=== PATIENT | female | born 1985 | race Caucasian/White ===

== ENCOUNTER 2019-04-09 17:10 | Inpatient (IN) | payer MEDICAID ==
[~2019-04-09] VITALS: Ht 160 cm; Wt 78.1 kg
[~2019-04-09 17:10] MED LIST: PNV11TAB PO
[2019-04-09 17:45] VITALS: BP 124/60; PULSE 109; RESP 19; Ht 160 cm; Wt 78.1 kg
[2019-04-09] MEDS ORDERED: LACTATED RINGER'S 1,000 ML IV SCH ×2 (18:00→18:57)
[2019-04-09] MEDS ORDERED: LACTATED RINGER'S 1,000 ML IV ONE (18:00)
[2019-04-09] MEDS ORDERED: CARBOPROST 250 MCG INJ IM PRN ×2 (19:00→23:30)
[2019-04-09] MEDS ORDERED: OXYTOCIN 30 UNITS/LR 500 ML IV SCH ×2 (19:00→23:30)
[2019-04-09] MEDS ORDERED: METHYLERGONOVINE 0.2 MG INJ IM PRN ×2 (19:00→23:30)
[2019-04-09] MEDS ORDERED: GENTAMICIN 120 MG/NS (PMX) 100 ML IVPB ONE ×2 (19:00→19:18)
[2019-04-09] MEDS ORDERED: CLINDAMYCIN 900 MG (PMX) 50 ML IVPB SCH (19:00)
[2019-04-09] MEDS ORDERED: MISOPROSTOL 200 MCG TAB PR PRN ×2 (19:00→23:30)
[2019-04-09] MEDS ORDERED: AMPICILLIN 2 GM/NS (PMX) 100 ML IV SCH (19:00)
[2019-04-09] MEDS ORDERED: OXYTOCIN 30 UNITS/LR 500 ML IV PRN ×2 (19:00→23:30)
[2019-04-09] MEDS ORDERED: morphine SULFATE/PF (10 MG/10 ML) INJ ONE (19:06)
[2019-04-09] MEDS ORDERED: PHENYLephrine (100 MCG/ML) 10ML SYG ONE (19:06)
--- NOTE | 2019-04-09 19:08 | PREAC ---
Date/Time of Note Date/Time of Note DATE: 04/09/19 TIME: 19:07 Anesthesia Eval and Record Evaluation Time Pre-Procedure Interview DATE: 04/09/19 TIME: 19:07 Age 33 Sex female NPO: 8 hrs Preoperative diagnosis 25 weeks with heart rate >210 Planned procedure emergency c/s Past Medical History Past Medical History: Includes GI: Obesity Surgery & Anesthesia Issues No known issue Meds Anticoagulation: No Beta Shelbie within 24 hr: No Reason Beta Shelbie not given: Pt. not on B-Shelbie Reported Medications [id number] ( 19) 1 Each Tablet, 1 TAB PO DAILY, TAB 04/09/19 Current Medications Lactated Ringer's 1,000 ml @ 125 mls/hr Q8H IV Last administered on 04/09/19at 19:05; Admin Dose 125 MLS/HR; Start 04/09/19 at 18:00 Lactated Ringer's 1,000 ml @ 125 mls/hr Q8H IV ; Start 04/09/19 at 18:57; Status UNV Ampicillin 100 ml @ 100 mls/hr ONCE IV ; Start 04/09/19 at 19:00; Status UNV Clindamycin HCl/ Dextrose 50 ml @ 50 mls/hr ONCE IVPB ; Start 04/09/19 at 19:00; Status UNV Oxytocin/Lactated Ringer's 500 ml @ 125 mls/hr POST IV ; Start 04/09/19 at 19:00; Status UNV Oxytocin/Lactated Ringer's 500 ml @ 0 mls/hr ONCE PRN IV .VAGINAL BLEEDING; Start 04/09/19 at 19:00; Status UNV Methylergonovine Maleate (Methergine) 0.2 mg ONCE PRN IM .VAGINAL BLEEDING; Start 04/09/19 at 19:00; Status UNV Carboprost Tromethamine (Hemabate) 250 mcg ONCE PRN IM .VAGINAL BLEEDING; Start 04/09/19 at 19:00; Status UNV Misoprostol (Cytotec) 1,000 mcg ONCE PRN CA .VAGINAL BLEEDING; Start 04/09/19 at 19:00; Status UNV Gentamicin Sulfate 100 ml @ 200 mls/hr Q24H IVPB ; Start 04/09/19 at 19:00; Status UNV Meds reviewed: Yes Allergies Coded Allergies: No Known Allergy (Unverified , 04/09/19) Allergies Reviewed: Yes Labs/Studies Labs Reviewed: Reviewed by anesthesiologist Result Diagram: 04/09/19 1805 Laboratory Tests 04/09/19 18:05 test: Positive Pre-procedure Exam Last vitals Vital Signs Date Temp Pulse Resp B/P (MAP) Pulse Ox O2 O2 Flow FiO2 Time Delivery Rate 04/09/19 99.9 109 19 124/60 Room Air 17:45 (81) Airway: Adequate mouth opening, Adequate thyromental dist Mallampati: Mallampati II Teeth: Normal Lung: Normal Heart: Normal ASA Physical Status ASA physical status: 2 Emergency: E Planned Anesthetic General/MAC: ETT Neuraxial: Spinal, Epidural Pre-operative Attestations Prior to commencing anesthesia and surgery, the patient was re-evaluated, there was verification of: *The patient's identity *The results of appropriate recent lab work and preoperative vital signs *The above evaluation not changing prior to induction *Anesthetic plan, risk benefits, alternative and complications discussed with patient/family; questions answered; patient/family understands, accepts and wishes to proceed. SUELLEN MASSEY Apr 09, 2019 19:08
[2019-04-09] MEDS ORDERED: CITRIC ACID/NA CITRATE 30 ML CUP ONE (19:16)
[2019-04-09] MEDS ORDERED: CLINDAMYCIN 900 MG (PMX) 50 ML IVPB ONE (19:18)
[2019-04-09] MEDS ORDERED: AMPICILLIN 2 GM/NS (PMX) 100 ML ONE (19:18)
--- NOTE | 2019-04-09 19:20 | HP ---
Date/Time of Note Date/Time of Note DATE: 04/09/19 TIME: 19:06 OB - History Hx of Present Free Text/Dictation 33 years old with single intrauterine at 25 weeks with a DEBO of 07/23/2019 complaining of uterine contractions and leakage of fluid since last night. She denies nausea, vomiting, shortness of breath, chest pain, headache, visual changes, vaginal bleeding. Chief Complaint: Uterine contractions and leakage of fluid Estimated Due Date: Jul 23, 2019 : 3 Para: 2 Spontaneous : 0 Therapeutic : 0 Care: Good Care Ultrasounds: Normal mid trimester US Obstetrical Complications: None Medical Complications: None Past Family/Social History * Past Medical history: Abnormal Pap Past surgical history: LEEP x2 OB history -1-0-2, history of labor at 36 weeks Family history: Unremarkable Social history: She declined tobacco, alcohol or drug use OB Admission Exam Vital Signs Vital Signs Vital Signs Date Temp Pulse Resp B/P (MAP) Pulse Ox O2 O2 Flow FiO2 Time Delivery Rate 04/09/19 99.9 109 19 124/60 Room Air 17:45 (81) Physical Exam HEENT: WNL Heart: Rhythm Normal Lungs: Clear Abdomen: WNL Extremities: Normal Cervical Dilatation: Fingertip Effacement: 0% Station: -3 Membranes: Ruptured (Gush of fluid with discharge) Amniotic Fluid: Clear Accelerations: No Accelerations Decelerations: Variable Decelerations Varibility: Minimum Contractions on Admission: None Last 72 hours Lab Results CBC & BMP 04/09/19 18:05 OB Assessment/Plan Other plan: 33 years old 3 para 1-1-0-2 with single intrauterine at 25 weeks category 3 heart rate and possible chorioamnionitis - heart rate: 210 bpm no variability,, no acceleration with the recurrent variable deceleration-category 3 -Continuous EFM, toco -SVE: Leakage of fluid which is a malodor. Positive Nitrazine test -CBC, blood type and screen -Urine drug screen -Ampicillin 2 g IV, gentamicin 80 mg IV, clindamycin 900 mg IV -Patient discussed over the phone with the perinatologistDr. Barber who recommend delivery -Please see the orders -Obtain record -Neonatology consult JO ANN -Risk with delivery including but not limited to prolonged use ICU ad mission, respiratory, heart, liver, renal, anemia of prematurity, hyperbilirubinemia, alf disability, cerebral palsy, mental retardation discussed with patient in detail. She voiced understanding. The risk of delivery including but not limited to bleeding, infection, injury to other organs (bowel, bladder, ureter, vessels, nerves), injury to fetus, blood transfusion, blood transfusion related infection, risk of anesthesia, adhesion, needs for future , removal of uterus or any other indicated surgery was discussed with the patient and her family. She expressed understanding. All of her questions were answered. She signed the informed consent. PHYSICIAN'S VERIFICATION OF INFORMED CONSENT The patient was counseled regarding the procedure, its indications, risks, potential complications and alternatives and any questions were answered. Consent was obtained. PLANNED PROCEDURE/TREATMENT: delivery with possible using vacuum/forceps and any other indicated surgery PHYSICIAN'S VERIFICATION OF INFORMED CONSENT FOR BLOOD TRANSFUSION: There is a reasonable possibility that blood transfusion will be necessary as a result of the patient's procedure. I have discussed the following with the patient/patient's legal labor representative: An explanation of the benefits and risks of the transfusion of blood or blood products and the possible alternatives. All questions have been answered to the patient's satisfaction. INFORMED CONSENT:The patient has been informed of: The nature of the proposed care, treatment, services, medications, interventions or procedures. Potential benefits, risks or side effects, including potential problems related to recuperation. The likelihood of achieving care treatment and service goals. Reasonable alternatives to the proposed care, treatment and service. The relevant risks, benefits and side effects related to alternatives, including the possible results of not receiving care, treatment and services. When indicated, any limitations on the confidentiality of information learned from or about the patient. If appropriate, the risks, benefits and alternatives of the drugs to be used for sedation/analgesia including moderate sedation. If appropriate, patient has been provided information on the risks, benefits and alternatives to the transfusion of blood and/or blood products. If appropriate, patient has been provided information regarding the [place] Blood Act. ALEXANDRA ORTIZ Apr 09, 2019 19:16
[2019-04-09] MEDS ORDERED: HYDROmorphONE 0.5 MG/0.5 ML SYG IV PRN ×2 (19:30)
[2019-04-09] MEDS ORDERED: ALBUTEROL 0.083% (NEB) 2.5 MG/3 ML AMP HHN PRN (19:30)
[2019-04-09] MEDS ORDERED: DIPHENHYDRAMINE 50 MG INJ IV PRN ×2 (19:30)
[2019-04-09] MEDS ORDERED: KETOROLAC 30 MG INJ IV PRN (19:30)
[2019-04-09] MEDS ORDERED: NALOXONE (0.4 MG/ML) INJ IV PRN (19:30)
[2019-04-09] MEDS ORDERED: ONDANSETRON 4 MG INJ IV PRN ×2 (19:30)
[2019-04-09] MEDS ORDERED: HYDROmorphONE 1 MG/5 ML IV SYRINGE IV PRN ×3 (19:30)
[2019-04-09] MEDS ORDERED: FENTAnyl 50 MCG/ML VIAL IV PRN ×3 (19:30)
[2019-04-09] MEDS ORDERED: METOCLOPRAMIDE 10 MG INJ IV PRN (19:30)
[2019-04-09] MEDS ORDERED: ONDANSETRON 4 MG INJ ONE (19:38)
[2019-04-09] MEDS ORDERED: FENTAnyl 50 MCG/ML VIAL ONE ×3 (19:47→20:04)
[2019-04-09] MEDS ORDERED: SUCCINYLCHOLINE CHLORIDE 100 MG/5 ML SYG IV ONE (20:31)
[2019-04-09] MEDS ORDERED: SUGAMMADEX SODIUM 200 MG/2 ML VIAL IV ONE (20:31)
[2019-04-09] MEDS ORDERED: ROCURONIUM 50 MG INJ ONE (20:31)
[2019-04-09] MEDS ORDERED: PROPOFOL 20 ML ONE (20:31)
[2019-04-09] MEDS ORDERED: METOCLOPRAMIDE 10 MG INJ ONE (20:39)
[2019-04-09] MEDS ORDERED: FAMOTIDINE 20 MG INJ ONE (20:39)
[2019-04-09] MEDS: KETOROLAC 30 MG INJ IV PRN (22:01)
--- NOTE | 2019-04-09 23:00 | PAC ---
Date/Time of Note Date/Time of Note DATE: 04/09/19 TIME: 23:00 Post-Anesthesia Notes Post-Anesthesia Note Last documented vital signs Vital Signs Date Temp Pulse Resp B/P (MAP) Pulse Ox O2 O2 Flow FiO2 Time Delivery Rate 04/09/19 99.9 109 19 124/60 Room Air 17:45 (81) Activity: WNL Respiratory function: WNL Cardiovascular function: WNL Mental status: Baseline Pain reasonably controlled: Yes Hydration appropriate: Yes Nausea/Vomiting absent: Yes USELLEN MASSEY Apr 09, 2019 23:00
[2019-04-09] MEDS ORDERED: METHYLERGONOVINE 0.2 MG TAB PO PRN (23:30)
[2019-04-09] MEDS ORDERED: HYDROCODONE/APAP (5/325) TAB PO PRN ×2 (23:30)
[2019-04-09] MEDS ORDERED: LANOLIN HPA 1 PKT TOP PRN (23:30)
[2019-04-09] MEDS: DEXTROSE 5%-LR 1,000 ML IV SCH (23:30)
--- NOTE | 2019-04-09 23:40 | OPR ---
Operative Report Planned Procedure Procedure date Apr 09, 2019 Procedure(s) Primary low transverse delivery Performed by see signature line Food Safety Specialist: SALBADOR PATEL MD Anesthesiologist: SUELLEN MASSEY Pre-procedure diagnosis 33 years old 3 para 1-1-0-2 with single intrauterine at 25 weeks with category 3 heart rate and chorioamnionitis [id number] Anesthesia Type: Lyrro8d other (Spinal and general) Post-Procedure Post-procedure diagnosis 33 years old 3 para 1-1-0-2 with single intrauterine at 25 weeks with category 3 heart rate and chorioamnionitis Findings 1. Normal uterus, fallopian tubes and ovaries 2. Viable female in cephalic presentation. 5 at one minute and 6 in 5 minutes and 9 at 10 minutes. Weight: 625 g. Time of delivery: 19: 46 3. Placenta with three vessel cord 4. Minimal extremely malodorous amniotic fluid Estimated Blood Loss: 500 - 600 mls Specimen(s) Placenta Grafts/Implant(s) none Complication(s) none Pt Condition post procedure: stable Disposition: PACU Procedure Description INDICATION AND HISTORY: A 33 years old 3 para 1-1-0-2 with single intrauterine at 25 weeks with category 3 heart rate and chorioamnionitis. The risk of delivery and delivery including but not limited to bleeding, infection, injury to other organs (bowel, bladder, ureter, vessels, nerves), injury to fetus, blood transfusion, blood transfusion related infection, risk of anesthesia, adhesion, needs for future , removal of uterus or any other indicated surgery was discussed with the patient and her family. She expressed understanding. All of her questions were answered. She signed the informed consent. Please see H&P for details DESCRIPTION OF OPERATION: The patient was taken to the operating room, where she was identified and the procedure was verified. The patient received two gram of ampicillin, gentamicin 80 mg and clindamycin 900 mg for chorioamnionitis prior to surgery. Spinal an esthesia was placed. The patient placed in the dorsal supine position with a left tilt. The patient was then prepped and draped in the normal sterile fashion. A Pfannenstiel skin incision was made and carried down to the fascia with knife. The fascia was incised in the midline and the fascial incision was carried laterally with knife. The superior portion of the fascial incision was then grasped with Jill clamps and tented up and dissected off the underlying rectus muscle with sharp dissection. The lower portion of the fascial incision was then made in a similar fashion. The rectus muscle was and the peritoneum was entered. The peritoneal incision was then stretched and a bladder blade was inserted. Then, an incision was made in the lower uterine segment in a transverse fashion with a knife and extended bluntly. As noted above there was minimal extremely malodorous amniotic fluid. The was delivered atraumatically in cephalic presentation with the above findings. The umbilical cord was clamped and cut. The neonatology resuscitation team was present and the baby was handed to them. A cord blood sample was obtained for further evaluation. The placenta and membrane, which appeared normal were Removed. The uterus was exteriorized and cleared of all clot and debris. The uterus was then closed in a two layer fashion with 0-Monocryl. At the time of closure, hemostasis was noted. The gutters were irrigated. The peritoneum was reapproximated with 3-0 Vicryl. The muscle was reapproximated with 3-0 Vicryl. The fascia was approximated with 0-Vicryl in a running fashion. The subcutaneous tissue was re approximated with 3-0 vicryl. The skin was closed with 4-0 Monocryl. All instruments, sponges and needle counts were correct x3. The patient tolerated the procedure well. She transferred to the recovery room in stable condition. ALEXANDRA ORTIZ Apr 09, 2019 23:40
[2019-04-09 23:45] VITALS: BP 89/60; PULSE 75; RESP 19
[2019-04-10] MEDS: METOCLOPRAMIDE 10 MG INJ IV SCH ×5 (00:58→23:45)
[2019-04-10 02:00] VITALS: BP 95/59; PULSE 71; RESP 20
[2019-04-10] MEDS: PIPER-TAZO 3.375 GM IV (PMX) 100 ML IVPB SCH ×3 (02:29→17:34)
[2019-04-10 04:00] VITALS: BP 97/58; PULSE 75; RESP 19
[2019-04-10] MEDS: IBUPROFEN 800 MG TAB PO SCH ×3 (06:00→21:37)
[2019-04-10] MEDS: DEXTROSE 5%-LR 1,000 ML IV SCH (07:30)
[2019-04-10] MEDS: LACTATED RINGER'S 1,000 ML IV SCH ×3 (08:00→23:40)
[2019-04-10 10:45] VITALS: BP 107/62; PULSE 87; RESP 18
[2019-04-10] MEDS: CELECOXIB 200 MG CAP PO SCH ×2 (10:50→21:37)
[2019-04-10] MEDS ORDERED: HYDROCODONE/APAP (5/325) TAB NGT PRN (11:00)
[2019-04-10] MEDS ORDERED: DIPHTH/TET/ACEL PERTUSS (ADULT) 0.5 ML VIAL IM* ONE (11:00)
--- NOTE | 2019-04-10 11:21 | QN ---
Documentation Comment progress note pod 1 patient seen and evaluated patient is crying because of her recent post demise she denies headache, n/v, sob, visual changes, palpitation, sweating vs stable afebrile lung cta b/l ab soft nt, incision dressing dry extremity no edema no calf tenderness a/ sp cd pod 1 post demise elevated wbc, currently on iv antibiotic p/ social work consult bereavement counseling iron supplement repeat cbc in am ALBERTO WEISS MD Apr 10, 2019 11:21
[2019-04-10] MEDS: SENNA/DOCUSATE NA (8.6MG/50MG) TAB PO SCH ×2 (11:56→21:37)
[2019-04-10] MEDS ORDERED: HYDROCODONE/APAP (5/325) TAB GTB SCH (14:00)
[2019-04-10] MEDS: KETOROLAC 30 MG INJ IV PRN (15:54)
[2019-04-10 16:09] VITALS: BP 98/59; PULSE 67; RESP 18
[2019-04-10] MEDS: FERROUS SULFATE (EC) 325 MG TAB PO SCH (21:37)
[2019-04-10 21:40] VITALS: BP 101/62; PULSE 72; RESP 18
--- NOTE | 2019-04-10 23:42 | DELSUM ---
Delivery Summary A-C Datetime Report Generated by CPN: 04/10/2019 23:42 DELIVERY PERSONNEL Appliance Fixer: NICOLE, KEVYN MATERNAL INFORMATION Delivery Anesthesia: Spinal Medications in Delivery: SEE ANESTHESIA RECORD Delivery QBL (ml): 500 Placenta Cultured: Yes Maternal Complications: Chorioamnionitis; Other Other Maternal Complications: PPROM RN Comments: Benoit Pradhan RT LABOR SUMMARY EDC: 07/23/2019 00:00 No. Babies in Womb: 1 Attempted: No Labor Anesthesia: None LABOR INFORMATION Reason for Induction: Not Applicable Onset of Labor: 04/09/2019 01:00 Group B Beta Strep: Done, Result Unknown Antibiotics # of Doses: 3 Antibiotics Time of Last Dose: 04/09/2019 19:30 Steroids Given: None Reason Steroids Not Administered: Not Applicable MEMBRANES Membranes Rupture Method: Spontaneous Rupture of Membranes: 04/09/2019 01:00 Length of Rupture (hr): 18.77 Amniotic Fluid Color: Clear Amniotic Fluid Amount: Small Amniotic Fluid Odor: Foul STAGES OF LABOR Stage 3 hr: 0 Stage 3 min: 1 Total Time in Labor hr: 18 Total Time in Labor min: 47 CSECTION DELIVERY Primary Indication: Nonreassuring Stat Secondary Indication: N/A CSection Urgency: Emergency CSection Incidence: Primary Labor: No Labor CSection Incision: Lower Uterine Transverse BABY A INFORMATION Infant Delivery Date/Time: 04/09/2019 19:46 Method of Delivery: Born in Route : No : N/A Forceps: N/A Vacuum Extraction: N/A Shoulder Dystocia : N/A SHOULDER DYSTOCIA BABY A Delivery Date/Time: 04/09/2019 19:46 PRESENTATION/POSITION BABY A Presentation: Cephalic Cephalic Presentation: Vertex Breech Presentation: N/A PLACENTA INFORMATION BABY A Placenta Delivery Time : 04/09/2019 19:47 Placenta Method of Delivery: Manual Removal Placenta Status: Delivered SCORES BABY A Heart Rate 1 min: >100 bpm Resp Effort 1 min: Slow, Irregular Reflex Irritability 1 min: Grimace Muscle Tone 1 min: Some Flexion of Extrem Color 1 min: Blue/Pale SCORE 1 MIN: 5 Heart Rate 5 min: >100 bpm Resp Effort 5 min: Slow, Irregular Reflex Irritability 5 min: Grimace Muscle Tone 5 min: Some Flexion of Extrem Color 5 min: Body [place], Extremit Blue SCORE 5 MIN: 6 Heart Rate 10 min: >100 bpm Resp Effort 10 min: Good Cry Reflex Irritability 10 min: Cough/Sneeze/Pulls Away Muscle Tone 10 min: Active Motion Color 10 min: Body [place], Extremit Blue SCORE 10 MIN: 9 INFANT INFORMATION BABY A Gestational Age at Delivery: 25.0 Gestational Status: - <34 Weeks Outcome : Liveborn, with signs of life Infant Condition : Stable Sex: Female IDENTIFICATION/MEDS BABY A ID Band Number: [id number] ID Band Location: Right Leg; Taped to Bed Sensor Applied: No Vitamin K Given : Not Given Erythromycin Given: Not Given WEIGHT/LENGTH BABY A Infant Birthweight (gm): 625 Weight (lb): 1 Weight (oz): 6 Length (in): 12.21 Infant Length (cm): 31.01 CORD INFORMATION BABY A No. Cord Vessels: 3 Nuchal Cord : Around Neck x1, Loose Cord Blood Taken: Yes Infant Suction: Mouth; Nose ASSESSMENT BABY A Infant Complications: Decreased Variability; Extended Bradycardi; Multiple Variable Decels Physical Findings at Delivery: Other Respirations: Intercostal Retractions Adzing And Boring Machine Feeder/ALS Called : Yes Care By: RT/RN Transferred To: NICU
[2019-04-11] MEDS: PIPER-TAZO 3.375 GM IV (PMX) 100 ML IVPB SCH ×3 (02:20→18:06)
[2019-04-11 03:59] VITALS: BP 93/55; PULSE 59; RESP 18
[2019-04-11] MEDS: IBUPROFEN 800 MG TAB PO SCH ×3 (05:54→21:32)
[2019-04-11] MEDS: LACTATED RINGER'S 1,000 ML IV SCH ×2 (08:09→22:02)
[2019-04-11 08:31] VITALS: BP 97/62; PULSE 62; RESP 17
[2019-04-11] MEDS: SENNA/DOCUSATE NA (8.6MG/50MG) TAB PO SCH ×2 (08:38→21:32)
[2019-04-11] MEDS: FERROUS SULFATE (EC) 325 MG TAB PO SCH ×2 (08:38→21:32)
[2019-04-11] MEDS: CELECOXIB 200 MG CAP PO SCH ×2 (08:38→21:32)
[2019-04-11 17:32] VITALS: BP 101/51; PULSE 62; RESP 16
[2019-04-11 19:45] VITALS: BP 110/77; PULSE 82; RESP 19
--- NOTE | 2019-04-11 22:30 | QN ---
Documentation Comment barely start eating today passing flatus no B.M vss afebrile abdomen soft wound dry lochia no foul odor'calf neg CBC 16.000/8.7.26.4/238 A s/p C/s #2 stable P d/c IV cont JOLEEN Mccloud MD Apr 11, 2019 22:30
[2019-04-12] MEDS: PIPER-TAZO 3.375 GM IV (PMX) 100 ML IVPB SCH ×2 (02:42→09:40)
[2019-04-12 05:30] VITALS: BP 117/60; PULSE 67; RESP 19
[2019-04-12] MEDS: IBUPROFEN 800 MG TAB PO SCH ×2 (05:42→12:51)
[2019-04-12 08:26] VITALS: BP 135/69; PULSE 65; RESP 14
[2019-04-12] MEDS ORDERED: BISACODYL 10 MG SUPP PR ONE (09:00)
[2019-04-12] MEDS ORDERED: MEASLES,MUMPS,RUBELLA VACCINE INJ SC* ONE (09:00)
[2019-04-12] MEDS ORDERED: DIPHTH/TET/ACEL PERTUSS (ADULT) 0.5 ML VIAL IM* ONE (09:00)
[2019-04-12] MEDS: CELECOXIB 200 MG CAP PO SCH (09:40)
[2019-04-12] MEDS: SENNA/DOCUSATE NA (8.6MG/50MG) TAB PO SCH (09:40)
[2019-04-12] MEDS: FERROUS SULFATE (EC) 325 MG TAB PO SCH (09:41)
--- NOTE | 2019-04-12 19:52 | DS ---
Date/Time of Note Date/Time of Note DATE: 04/12/19 TIME: 19:51 Obstetrical Discharge Record Final Diagnosis Final Diagnosis: Term delivered Other Final Diagnosis Postop day #3 Status post repeat Patient stable and afebrile Positive flatus and voiding and tolerating regular diet and ambulating Vital signs stable Hematology - 72 Hrs Test 04/10/19 04:32 04/11/19 04:23 04/12/19 10:28 Hematocrit 28.7 % (37.0-47.0) 26.4 % (37.0-47.0) 29.3 % (37.0-47.0) L L L Hemoglobin 9.5 8.7 9.5 g/dl (12.0-16.0) L g/dl (12.0-16.0) g/dl (12.0-16.0) L L Mean Corpuscular 31.1 pg (29.0-33.0) 31.8 31.5 Hemoglobin pg (29.0-33.0) pg (29.0-33.0) Mean Corpuscular 33.1 33.0 32.4 Hemoglobin Concent g/dl (32.0-37.0) g/dl (32.0-37.0) g/dl (32.0-37.0) Mean Corpuscular 94.1 96.4 97.0 Volume fl (82.0-101.0) fl (82.0-101.0) fl (82.0-101.0) Mean Platelet 10.1 fl (7.4-10.4) 10.2 fl (7.4-10.4) 10.3 fl (7.4-10.4) Volume Monocytes # 1.6 (Manual) 10^3/ul (0.3-0.9) H Platelet Count 251 238 300 10^3/UL (140-415) 10^3/UL (140-415) 10^3/UL (140-415) # Red Blood Count 3.05 2.74 3.02 10^6/ul (4.20-5.40) 10^6/ul (4.20-5.40 10^6/ul (4.20-5.40 L ) L ) L Red Cell 12.6 % (11.5-14.5) 12.7 % (11.5-14.5) 12.4 % (11.5-14.5) Distribution Width White Blood Count 20.4 16.0 9.6 10^3/ul (4.8-10.8) 10^3/ul (4.8-10.8) 10^3/ul (4.8-10.8) H #H # Abdomen soft, fundus firm Incision clean, dry, intact Extremities nontender Assessment and plan Patient was seen by social service for consultation for depression Patient stable and doing well Plan to discharge home Prescription for pain meds were given Patient instructed to follow-up with [facility] in 1-2 and 6 weeks Section Section: Primary Condition on Discharge Physical Assessment Last Vitals: VS - Last 72 Hours, by Label Date Temp Pulse Resp B/P (MAP) Pulse Ox O2 O2 Flow FiO2 Time Delivery Rate 04/12/19 98.5 65 14 135/69 Room Air 08:26 (91) 04/12/19 98.6 67 19 117/60 Room Air 05:30 (79) 04/11/19 97.5 82 19 110/77 Room Air 19:45 (88) 04/11/19 97.9 62 16 101/51 Room Air 17:32 (68) 04/11/19 98.0 62 17 97/62 (74) Room Air 08:31 04/11/19 98.1 59 18 93/55 (68) Room Air 03:59 04/10/19 98.3 72 18 101/62 Room Air 21:40 (75) 04/10/19 98.3 67 18 98/59 (72) Room Air 16:09 04/10/19 98.5 87 18 107/62 98 Room Air 10:45 (77) 04/10/19 98.6 75 19 97/58 (71) 97 Room Air 04:00 04/10/19 98.5 71 20 95/59 (71) Room Air 02:00 04/09/19 98.6 75 19 89/60 (70) 97 Room Air 23:45 Voiding: Yes Bowel Movement: Yes Breast: Soft, non-tender Fundus: Firm Calf Tenderness: No Patient Condition: Good Copies To: CC: ALBERTO WEISS MD ; SERA SCHRADER MD Apr 12, 2019 19:52
--- NOTE | 2019-04-24 19:50 | CONS ---
Consultation Date/Type/Reason Admit Date/Time Apr 09, 2019 at 18:30 Initial Consult Date 04/10/19 Type of Consult anesthesia Reason for Consultation duramorph f/u Date/Time of Note DATE: 04/24/19 TIME: 19:49 24 HR Interval Summary Free Text/Dictation Pt seen and examined on 04/10/19 was POD#1 s/p emergency c/s. Pt received spinal duramorph for post-op pain control. She stated she had no pain. SUELLEN MASSEY Apr 24, 2019 19:50
== END 2019-04-12 13:40 | disposition home or self-care (01) | DRG 786 ==
LOC: L-D 17:10 → OBT 17:10 → L-D 18:30 → OBT 19:04 → L-D 19:23 → MS1 23:41
PROVIDERS: ADMIT Obstetrics & Gynecology; ATTEND Obstetrics & Gynecology
PROC: 10D00Z1 Extraction of Products of Conception, Low, Open Approach (ICD-10-PCS; principal; 2019-04-09 19:45)
DX: O76 Abnormality in fetal heart rate and rhythm complicating labor and delivery (principal); O41.1230 Chorioamnionitis, third trimester, not applicable or unspecified; Z3A.25 25 weeks gestation of pregnancy; Z37.0 Single live birth
CPT/HCPCS: 76815; 76817; 80307; 81001; 84112; 85025; 85610; 85730; 86592; 86850; 86900; 86901; 87070; 87340; 88307; 90715; 99464; G0463; J0290; J1170; J1580; J1885; J2274; J2370; J2405; J2543; J2590; J2765; J3010; J7120; J7121